=== PATIENT | female | born 1985 | race Hispanic/Latino ===

== ENCOUNTER 2020-11-29 06:24 | Inpatient (IN) | payer OTHER ==
[2020-11-26 08:11] LABS: BASOPHILS # (AUTO) 0.1 (0.0-0.1); BASOPHILS % 0.6 % (0.0-1.0); EOSINOPHILS # (AUTO) 0.1 (0.0-0.4); EOSINOPHILS % 0.7 % (0.0-6.0); HEMATOCRIT 39.3 % (34.2-44.1); HEMOGLOBIN 13.2 g/dL (12.0-16.0); MEAN CORPUSCULAR HEMOGLOBIN 27.4 pg (28-32); MEAN CORPUSCULAR HGB CONC 33.6 g/dL (31-35); MEAN CORPUSCULAR VOLUME 81.7 fL (81-99); MONOCYTES # (AUTO) 0.9 (0.2-0.8); MONOCYTES % 8.6 % (4.4-11.3); NEUTROPHILS # (AUTO) 6.9 (2.1-6.9); NEUTROPHILS % 69.1 % (38.7-80.0); PLATELET COUNT 284 x10e3/uL (140-360); RED BLOOD COUNT 4.81 x10e6/uL (3.6-5.1); RED CELL DISTRIBUTION WIDTH 13.3 % (11.7-14.4)
[~2020-11-29] VITALS: Ht 162.6 cm; Wt 108.9 kg
[2020-11-29] MEDS ORDERED: KEFLEX125 MG/5 M PO (07:33)
[2020-11-29] MEDS ORDERED: HYDROGEN PEROXIDE 120 ML BTL ONE (09:09)
[2020-11-29] MEDS ORDERED: BUPIVACAINE 0.25% 30ML SDV ONE (09:09)
[2020-11-29] MEDS ORDERED: ACETAMINOPHEN 1000 MG/100 ML 100 ML IV ONE (10:51)
[2020-11-29] MEDS ORDERED: PROPOFOL IV EMULSION 10 MG/ML 20 ML VIAL ONE ×3 (11:39→13:04)
[2020-11-29] MEDS ORDERED: SUGAMMADEX SODIUM 200 MG/2 ML VIAL IV ONE (11:39)
[2020-11-29] MEDS ORDERED: EPINEPHRINE 2.25% INH NEBU SOL 0.5 ML VIAL INH STA (11:42)
[2020-11-29] MEDS ORDERED: MORPHINE SULFATE INJ 2 MG/ML SYR IV PRN (12:00)
[2020-11-29] MEDS ORDERED: HYDROCODONE/APAP 7.5MG-325MG 1 EA TAB PO PRN (12:00)
[2020-11-29] MEDS ORDERED: ONDANSETRON HCL INJ 2MG/ML 2ML 2 MG/ML VIAL IV PRN (12:00)
[2020-11-29] MEDS ORDERED: LORAZEPAM INJ 2 MG/ML VIAL ONE (12:04)
[2020-11-29] MEDS ORDERED: ONDANSETRON HCL INJ 2MG/ML 2ML 2 MG/ML VIAL ONE ×2 (12:06→13:04)
[2020-11-29] MEDS ORDERED: FENTANYL CITRATE/PF 100MCG/2 ML INJ ONE (12:18)
[2020-11-29] MEDS ORDERED: POVIDONE IODINE 0.05% 0.05 % ML PO ONE (13:04)
[2020-11-29] MEDS ORDERED: SEVOFLURANE INHAL SOLN 250 ML PEN BTL ONE (13:04)
[2020-11-29] MEDS ORDERED: DEXAMETHASONE SOD PHOS INJ 4 MG/ML SDV ONE (13:04)
[2020-11-29] MEDS ORDERED: GLYCOPYRROLATE INJ 0.2 MG/ML VIAL ONE (13:04)
[2020-11-29] MEDS ORDERED: ROCURONIUM BROMIDE 10 MG/ML 5ML VIAL IV ONE (13:04)
[2020-11-29] MEDS ORDERED: LIDOCAINE HCL 2% LOCAL INJ 5 ML SDV VIAL INJ ONE (13:04)
[2020-11-29] MEDS ORDERED: NEOSTIGMINE 1 MG/ML 10ML VIAL ONE (13:04)
[2020-11-29] MEDS ORDERED: METOCLOPRAMIDE HCL 10 MG/2ML VIAL ONE (13:48)
[2020-11-29] MEDS ORDERED: PROMETHAZINE HCL (IM) 25 MG/ML VIAL IM ONE (16:45)
[2020-11-29 18:40] VITALS: BP 140/90
[2020-11-29 20:27] VITALS: BP 143/80
[2020-11-29] MEDS: ENOXAPARIN SOD INJ 40 MG/0.4 ML SYR SC SCH (20:48)
[2020-11-29] MEDS: SODIUM CHLORIDE 0.9% 1000ML 1,000 ML IV SCH (20:58)
[2020-11-29 21:00] VITALS: BP 143/80
[2020-11-30 01:17] VITALS: BP 148/96
[2020-11-30] MEDS: SODIUM CHLORIDE 0.9% 1000ML 1,000 ML IV SCH ×2 (02:49→10:00)
[2020-11-30 05:52] VITALS: BP 146/85
[2020-11-30 06:01] LABS: BASOPHILS % 0.2 % (0.0-1.0); HEMATOCRIT 37.3 % (34.2-44.1); HEMOGLOBIN 12.5 g/dL (12.0-16.0); LYMPHOCYTES # (AUTO) 1.8 (1.0-3.2); LYMPHOCYTES % 11.8 % (18.0-39.1); MEAN CORPUSCULAR HEMOGLOBIN 27.6 pg (28-32); MEAN CORPUSCULAR HGB CONC 33.5 g/dL (31-35); MEAN CORPUSCULAR VOLUME 82.3 fL (81-99); MONOCYTES # (AUTO) 1.3 (0.2-0.8); MONOCYTES % 8.4 % (4.4-11.3); NEUTROPHILS # (AUTO) 11.8 (2.1-6.9); NEUTROPHILS % 78.5 % (38.7-80.0); PLATELET COUNT 290 x10e3/uL (140-360); RED BLOOD COUNT 4.53 x10e6/uL (3.6-5.1); RED CELL DISTRIBUTION WIDTH 13.5 % (11.7-14.4)
[2020-11-30 06:38] LABS: ALBUMIN/GLOBULIN RATIO 1.3 (0.8-2.0); ANION GAP 15.9 mmol/L (8-16); CALCIUM 8.5 mg/dL (8.4-10.2); CREATININE, SERUM 0.69 mg/dL (0.57-1.11); MAGNESIUM 2.1 MG/DL (1.3-2.1); POTASSIUM 3.9 mmol/L (3.5-5.1)
[2020-11-30] MEDS: ENOXAPARIN SOD INJ 40 MG/0.4 ML SYR SC SCH (07:45)
[2020-11-30 07:58] VITALS: BP_SYST 118; BP_SYST 119; BP_DIAS 57; BP_DIAS 78
[2020-11-30 09:02] VITALS: BP 119/78
[2020-11-30 12:00] VITALS: BP 138/84
== END 2020-11-30 12:33 | disposition home or self-care (01) | DRG 621 ==
LOC: OR 06:24 → PACU V 11:22 → MED/SURG2 18:34
PROVIDERS: ADMIT Internal Medicine; ATTEND Internal Medicine
PROC: 0DB64Z3 Excision of Stomach, Percutaneous Endoscopic Approach, Vertical (ICD-10-PCS; principal; 2020-11-29 08:30)
DX: E66.01 Morbid (severe) obesity due to excess calories (principal); Z68.41 Body mass index [BMI] 40.0-44.9, adult; I10 Essential (primary) hypertension; K21.9 Gastro-esophageal reflux disease without esophagitis
CPT/HCPCS: 36415; 71045; 80053; 81025; 83735; 85025; J0690; J1100; J1650; J2001; J2060; J2270; J2405; J2550; J2710; J2765; J3010; J7030